=== PATIENT | male | born 2000 | race Caucasian/White ===

== ENCOUNTER 2024-01-17 09:05 | Emergency (ER) | payer BC, SELFPAY ==
[2024-01-17 09:05] VITALS: BMI 19.8
[2024-01-17 09:15] VITALS: BP 150/100
--- NOTE | 2024-01-17 10:14 | ED.GENMED ---
History of Present Illness
General
Chief Complaint: Chest Problem
Source: patient and family
Time Seen by Provider: 01/17/24 09:58
History of Present Illness
History of Present Illness:
23yoM with no significant past medical history presenting with his parents for evaluation after episode of palpitations. Patient woke up this morning around 7:30am. He was feeling normal but when he stood up to get out of bed, he noticed some
tingling in his bilateral hands and feet. The tingling lasted about 1 to 2 minutes before resolving. He went to work this morning and was asymptomatic initially. 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
onset of palpitations, shortness of breath, and lightheadedness. Patient reports that he was sweating profusely during this episode. The symptoms lasted about 20 to 30 minutes before resolving. His only current symptom is fatigue. He denies any
syncope. The triage note documents that he smoked marijuana this morning. Patient denies this and states that he smoked last night. Of note, patient is currently taking amoxicillin and Mucinex for a sinus infection. No family history of cardiac
disease.
Phy Exam
General Physical Exam
General Presentation: well appearing and no apparent distress
General age: appears stated age
General Skin: warm and dry
General Habitus: normal
General Mental: alert
Cardiovascular Exam
Cardiovascular Exam: regular rate/rhythm, no edema, no murmur and normal peripheral pulses (2+ DP pulses bilaterally)
Pulmonary Exam
Pulmonary Exam: lungs clear, no respiratory distress, no crackles and no wheezing
Musculoskeletal Exam
Musculoskeletal Exam: no edema
Skin Exam
Skin Exam: normal color and warm/dry
Psychiatric Exam
Psychiatric Exam: normal mood/affect
Course
Orders/Labs/Results
Orders:
Orders
01/17/24 09:09
EKG [Electrocardiogram (*1)] Urgent
Reason for Study: Bradycardia / Tachycardia
EKG- Treatment ONCE
01/17/24 10:13
0.9% Sodium Chloride 1000 ml [Nss] 1,000 ml IV BOLUS
CR Chest - 2 Views Urgent
Comment:
Reason For Exam: SOB
01/17/24 10:21
Complete Blood Count/With Diff Urgent
Comprehensive Metabolic Panel Urgent
Magnesium Urgent
TSH Reflex To Free T4 Urgent
Troponin I Urgent
Abnormal Lab Results
01/17/24
10:21
RBC 4.43 L 10^6/uL
(4.70-6.10)
MPV 10.5 H fL
(7.4-10.4)
Absolute Neuts (auto) 7.3 H 10^3/uL
(1.4-6.5)
Absolute Monos (auto) 0.9 H 10^3/uL
(0.1-0.6)
Neutrophils % 77.1 H %
(42.2-75.2)
Lymphocytes % 12.2 L %
(20.5-51.1)
Glucose 107 H mg/dl
(70-99)
01/17/24 10:21
01/17/24 10:21
Vital Signs
Initial and Last Documented VS:
Initial Vital Signs
Temp Pulse Resp BP Pulse Ox
98.0 F 94 16 150/100 98
01/17/24 09:15 01/17/24 09:15 01/17/24 09:15 01/17/24 09:15 01/17/24 09:15
Last Documented Vital Signs
Temp Pulse Resp BP Pulse Ox
98.0 F 70 10 146/90 99
01/17/24 09:15 01/17/24 11:45 01/17/24 11:45 01/17/24 11:33 01/17/24 11:45
MDM/Problems Addressed
Differential Diagnosis Includes:
23yoM here after an episode of palpitations, chest discomfort, and sweating this morning. Lasted 20-30 minutes and is now resolved. He is afebrile and hemodynamically stable. Patient is well-appearing in no acute distress. Exam is reassuring.
Differential diagnosis includes but is not limited to: Arrhythmia, dehydration, electrolyte abnormality, anxiety, doubt ACS
Initial ED plan: Check cardiac labs, magnesium, TSH, EKG, and chest x-ray. IV fluid bolus.
*EKG
Interpreted by ED Provider?: Yes
EKG Intrepretation Date: 01/17/24
EKG Intrepretation Time: 10:16
Heart Rate: 95
Rate: normal
Rhythm: sinus arrhythmia
[place]: normal axis
Interval: normal interval
QRS Pattern: normal QRS
Ischemia: no ischemia
*Critical Care Note
Total Time (30-74mins, 75-104mins- exclusive of procedures): Not Applicable
Update Note
Update Note:
Labs overall unremarkable including normal electrolytes and TSH. EKG shows normal sinus rhythm without ectopy or ischemic changes. Troponin is normal. Chest x-ray is clear. No telemetry events during ED stay. He remains asymptomatic on
reassessment. He is stable for discharge. Advised follow-up with PCP. ED return precautions discussed. Patient expressed understanding and is agreeable to plan. Patient discharged in stable condition.
ED Attending Note
-
Portions of this chart may have been created with voice recognition software.� Occasional wrong word or��sound alike� substitutions may have occurred due to the inherent limitations of voice recognition software.
Discharge Plan
Departure
Patient Disposition: Home (Routine Discharge)
Date of Disposition: 01/17/24
Time of Disposition: 12:05
Patient with high blood pressure during this ER visit?: Yes
Discharge Problem:
Palpitations
Instructions: Heart Palpitations
Referrals:
Corrie Herzog DO [Family Provider] -
Activity Restrictions/Additional Instructions:
Drink plenty of fluids and rest.
Please follow-up with your family doctor. Return to the ER with any new or worsening symptoms.
Interventions
Interventions:
*Risk Screen - Suicide Last Done: 01/17/24 10:34
*General Assessment Last Done: 01/17/24 10:34
*Neglect/Abuse Screening Last Done: 01/17/24 10:34
*Nursing Disposition Last Done: 01/17/24 12:11
ED- Cardiac Assessment Last Done: 01/17/24 10:34
ED- Pulmonary Assessment Last Done: 01/17/24 10:34
Discharge Date and Time
Discharge Date/Time: 01/17/24 12:15
Print Language: MALAY
[2024-01-17] MEDS: NSS 1000 IV (10:28)
[2024-01-17 11:05] LABS: Troponin I < 0.012 ng/ml
[2024-01-17 11:08] LABS: ALT (SGPT) 22 U/L (0-50); AST (SGOT) 35 U/L (17-59); Albumin 4.6 g/dl (3.5-5.0); Alkaline Phosphatase 52 U/L (38-126); Blood Urea Nitrogen 16 mg/dl (9-20); Calcium 9.7 mg/dl (8.4-10.2); Carbon Dioxide 30 mmol/L (22-30); Chloride 99 mmol/L (98-107); Estimated Creatinine Clearance 105 ml/min; Glucose 107 mg/dl (70-99); Magnesium 1.8 mg/dl (1.6-2.3); Potassium 4.6 mmol/L (3.5-5.1); Sodium 136 mmol/L (135-145); Total Bilirubin 0.5 mg/dl (0.2-1.3); Total Protein 7.3 g/dl (6.3-8.2); eGFR > 60.00
[2024-01-17 11:30] LABS: TSH Reflex To Free T4 3.15 uIU/ml (0.47-4.68)
[2024-01-17 11:33] VITALS: BP 146/90
[2024-01-17 11:34] LABS: % Basophils 0.5 % (0-2); % Eosinophils 0.5 % (0-6); % Immature Granulocytes 0.4 % (0-0.5); % Lymphocytes 12.2 % (20.5-51.1); % Monocytes 9.3 % (1.7-9.3); % Neutrophils 77.1 % (42.2-75.2); Absolute Basophils 0.1 10^3/uL (0-0.2); Absolute Eosinophils 0.1 10^3/uL (0-0.7); Absolute Lymphocytes 1.2 10^3/uL (1.2-3.4); Absolute Monocytes 0.9 10^3/uL (0.1-0.6); Absolute Neutrophils 7.3 10^3/uL (1.4-6.5); Hematocrit 39.4 % (39.0-52.0); Hemoglobin 13.7 g/dL (13.0-18.0); Mean Corp Hgb Conc. 34.8 g/dL (33.0-37.0); Mean Corpuscular Hgb 30.9 pg (27.0-31.0); Mean Corpuscular Volume 88.9 fL (80.0-94.0); Mean Platelet Volume 10.5 fL (7.4-10.4); Nucleated Red Blood Cells % 0 % (-); Platelet Count 240 10^3/uL (130-400); Red Blood Cell Count 4.43 10^6/uL (4.70-6.10); Red Cell Dist. Width 12.9 % (11.5-14.5); White Blood Cell Count 9.5 10^3/uL (4.8-10.8)
== END 2024-01-17 12:15 | disposition home or self-care (01) ==
LOC: EMR 09:05
PROVIDERS: Physician Assistant; EMERGENCY PHYSICIAN Emergency Medicine; FAMILY PHYSICIAN Family Medicine
DX: R00.2 Palpitations (principal); R20.2 Paresthesia of skin; R06.02 Shortness of breath; R42 Dizziness and giddiness; R61 Generalized hyperhidrosis; R07.89 Other chest pain; R53.83 Other fatigue; J01.90 Acute sinusitis, unspecified; F12.90 Cannabis use, unspecified, uncomplicated
CPT/HCPCS: 99284; 96360; 71046; 80053; 83735; 84443; 84484; 85025; 93005